=== PATIENT | male | born 2000 | race Caucasian/White ===

== ENCOUNTER 2019-04-23 05:46 | Inpatient (IN) | payer SELFPAY ==
[~2019-04-23] VITALS: Ht 172.7 cm; Wt 65.8 kg
--- NOTE | 2019-04-23 05:46 | NUR ---
PT BIB BY FRIEND [id number]. PT WAS UNRESPONSIVE TO VERBAL AND TACTILE STIMULATION. AGONAL RESPIRATIONS NOTED. PT WAS PALE AND DIAPHORETIC WITHOUT PURPOSEFUL MOVEMENT. GCS 3. RAPID RESPONSE IN ACTION. ERMD, EMT, RT, AND RNS AT BEDSIDE. GAVE NARCAN. PT RESPONSIVE, AGITATED, AND AGGRESSIVE. NO ALLERGIES. NO MED HX. SAFETY MEASURES IN PLACE. TAKING APPROPRIATE MEASURES PER ERMD PER ORDERS. WILL CONTINUE TO MONITOR.
--- NOTE | 2019-04-23 05:50 | NUR ---
FAMILY STATED PT WAS DRINKING ALCOHOL AND TAKING OXYCODONE. ERMD MADE AWARE.
[2019-04-23] MEDS ORDERED: NACL 0.9% 1,000 ML IV ONE ×2 (05:55→06:30)
[2019-04-23] MEDS ORDERED: NALOXONE 0.4 MG/ML VIAL IVP ONE ×2 (05:55)
--- NOTE | 2019-04-23 05:55 | NUR ---
BLOOD WAS DRAWN
--- NOTE | 2019-04-23 06:00 | NUR ---
PT IS ALERT AND TALKING. PT TOLERATED NARCAN. RESPONDS TO PAIN AND VERBAL STIMULI. VSS. CURRENTLY ON 4L NC. ABLE TO OBTAIN URINE VIA STRAIGHT CATH, SENT TO LAB. SAFETY MEASURES IN PLACE. WILL CONTINUE TO MONITOR.
[2019-04-23 06:27] LABS: APPEARANCE,URINE CLEAR (CLEAR); BASOPHILS % (AUTO) 0.3 % (0.0-2.0); BILIRUBIN,URINE NEGATIVE (NEGATIVE); BLOOD, URINE TRACE-I (NEGATIVE); COLOR,URINE YELLOW (YELLOW); EOSINOPHILS # (AUTO) 0.1 K/uL (0-0.4); EOSINOPHILS % (AUTO) 1.2 % (0.0-4.0); HEMATOCRIT 40.1 % (36-52); HEMOGLOBIN 13.2 g/dL (12.0-18.0); LEUKOCYTE ESTERASE ,URINE NEGATIVE (NEGATIVE); LYMPHOCYTES % (AUTO) 48.1 % (20.5-51.1); MEAN CORPUSCULAR HEMOGLOBIN 28 pg (27-31); MEAN CORPUSCULAR HGB CONC 33 g/dL (33-37); MEAN CORPUSCULAR VOLUME 84.6 fL (80-94); MONOCYTES # (AUTO) 0.9 K/uL (0.8-1.0); MONOCYTES % (AUTO) 8.3 % (1.7-9.3); NEUTROPHILS # (AUTO) 4.4 K/uL (1.8-7.7); NEUTROPHILS % (AUTO) 42.1 % (42.2-75.2); NITRITE, URINE NEGATIVE (NEGATIVE); PH,URINE 6.5 (5.0-9.0); PLATELET COUNT (AUTO) 218 K/uL (140-450); RED BLOOD CELL COUNT(AUTO) 4.74 MIL/uL (4.20-6.10); RED CELL DISTRIBUTION WIDTH 15.6 % (11.6-13.7); UGLUCOSE TRACE (NEGATIVE); WHITE BLOOD COUNT (AUTO) 10.4 K/uL (4.8-10.8)
--- NOTE | 2019-04-23 06:30 | NUR ---
PT RESTING IN BED, EASILY ARROUSABLE.
[2019-04-23 06:38] LABS: BARBITURATE, URINE NEG. ng/ml (NEG <=200); BENZODIAZEPINE, URINE POS. ng/mL (NEG <=200); CANNABINOID, URINE POS. ng/mL (NEG <=50); COCAINE, URINE POS. ng/mL (NEG <=300); OPIATE, URINE NEG. ng/mL (NEG <=2000); PHENCYCLIDINE SCREEN,URINE NEG. ng/mL (NEG <=25)
[2019-04-23 06:40] LABS: WBC,URINE 0-5 /HPF (0-5)
--- NOTE | 2019-04-23 06:40 | NUR ---
SEIZURE PRECAUTIONS IMPLEMENTED. BED RAILS UP X2, PADDED SIDE RAILS, AND BED IN LOWEST POSITION. WILL CONTINUE TO MONITOR.
--- NOTE | 2019-04-23 06:40 | NUR ---
Cezar schmidt in [facility], [place] - 04/23/19 at 0651 by TOMAS SEIZURE PRECAUTIONS IMPLEMENTED
[2019-04-23 06:42] LABS: ANION GAP 13.6 (8-16); POTASSIUM 3.6 mmol/L (3.5-5.1)
[2019-04-23 06:43] LABS: URINE AMORPHOUS URATE 2+ /HPF (None Seen)
[2019-04-23 06:50] LABS: ALBUMIN 3.8 g/dL (3.4-5.0); TOTAL BILIRUBIN 0.3 mg/dL (0.0-1.0)
[2019-04-23] MEDS ORDERED: ONDANSETRON 4 MG/2 ML VIAL IM/IVP PRN (06:55)
[2019-04-23] MEDS ORDERED: NACL 0.9% 1,000 ML IV SCH (06:55)
[2019-04-23] MEDS ORDERED: MORPHINE SULFATE 2 MG/ML SYR IVP PRN (06:55)
[2019-04-23] MEDS ORDERED: ACETAMINOPHEN 325 MG TAB PO PRN (06:55)
[2019-04-23] MEDS ORDERED: HYDROcodone/APAP 5/325 MG 1 TAB TAB PO PRN (06:55)
[2019-04-23] MEDS ORDERED: DOCUSATE SODIUM 100 MG GELCAP PO PRN (06:55)
[2019-04-23] MEDS ORDERED: NALOXONE PFS 2 MG/2 ML SYR ONE (07:19)
--- NOTE | 2019-04-23 07:26 | NUR ---
Patient will be admitted to care of DR. CONN. Admited to TELE. Will go to room 120A. Belongings list completed. Report to SANDRA WATERS.
[2019-04-23 07:30] VITALS: BP 97/69
--- NOTE | 2019-04-23 07:30 | NUR ---
PATIENT ARRIVED FROM ER VIA GURNEY. NO DISTRESS NOTED. DENIES ANY PAIN. AAOX3, CALM, COOPERATIVE, SKIN COLOR APPROPRIATE TO ETHNICITY, WARM TO TOUCH. SKIN INTACT. ABDOMEN SOFT, NON-DISTENDED. ABLE TO WALK TO BATHROOM AND BACK TO BED WITH STEADY GAIT AT THIS TIME. RESPIRATIONS EVEN, UNLABORED, ON ROOM AIR. ORIENTED PATIENT TO ROOM AND CALL LIGHT. IV SITES INTACT, PATENT, AND INFUSING IVF PER MD ORDERS. REVIEWED PLAN OF CARE WITH PATIENT. PATIENT VERBALIZED UNDERSTANDING. WILL CONTINUE TO MONITOR.
--- NOTE | 2019-04-23 07:30 | NUR ---
Pt report given AND TRANSFER OF CARE to SANDRA WATERS. VSS.
[2019-04-23 09:02] LABS: PROTHROMBIN TIME 9.9 secs (10.8-13.4)
[2019-04-23 09:21] LABS: MAGNESIUM 1.7 mg/dL (1.8-2.4); THYROID STIMULATING HORMONE 2.6 uIU/mL (0.34-3.74)
--- NOTE | 2019-04-23 12:10 | NUR ---
PATIENT WISHES TO LEAVE AMA, SAYS HE DOES NOT WANT TO STAY HERE. HE IS FEELING BETTER AND ABLE TO AMBULATE WITH STEADY GAIT. NOTIFIED DR. STEPHENSON REGARDING PATIENT WANTING TO LEAVE AMA. DR. STEPHENSON TALKED TO PATIENT AT BEDSIDE REGARDING RISKS OF LEAVING AMA. PATIENT WISHES TO CONTINUE TO LEAVE AMA. DESPITE RISKS EXPLAINED TO PATIENT BY MD. AMA PAPERS SIGNED. PATIENT AWAITING FOR GIRLFRIEND TO ARRIVE TO TAKE HIM HOME.
--- NOTE | 2019-04-23 12:40 | NUR ---
GIRLFRIEND AT BEDSIDE READY TO TAKE PATIENT HOME. IV SITES REMOVED WITH MINIMAL BLOOD AND LUMEN COMPLETELY INTACT. ID BANDS REMOVED. PATIENT LEFT AMA AT THIS TIME IN STABLE CONDITION.
== END 2019-04-23 12:40 | disposition left against medical advice (07) | DRG 917 ==
LOC: EDBD 05:46 → MED 05:46 → MTU 06:55
PROVIDERS: ADMIT General Practice; ATTEND General Practice
DX: T40.2X1A Poisoning by other opioids, accidental (unintentional), initial encounter (principal); G92 Toxic encephalopathy; Y92.89 Other specified places as the place of occurrence of the external cause; F19.90 Other psychoactive substance use, unspecified, uncomplicated; F32.9 Major depressive disorder, single episode, unspecified; F41.9 Anxiety disorder, unspecified; Z79.899 Other long term (current) drug therapy; F10.129 Alcohol abuse with intoxication, unspecified; Y90.9 Presence of alcohol in blood, level not specified; T40.7X1A Poisoning by cannabis (derivatives), accidental (unintentional), initial encounter; T40.5X1A Poisoning by cocaine, accidental (unintentional), initial encounter; T42.4X1A Poisoning by benzodiazepines, accidental (unintentional), initial encounter
CPT/HCPCS: 31500; 36415; 80053; 80305; 81001; 83036; 83690; 83735; 84100; 84443; 84484; 85025; 85610; 85730; 87081; 96361; 96374; 96376; 99291; G0482; J2310

== ENCOUNTER 2019-11-02 02:54 | Emergency (ER) | payer OTHER ==
[~2019-11-02] VITALS: Ht 172.7 cm; Wt 68.0 kg
[2019-11-02 03:01] VITALS: BP 121/78
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
--- NOTE | 2019-11-02 03:51 | NUR ---
X-Ray at bedside.
--- NOTE | 2019-11-02 05:13 | NUR ---
Dr. Hernández examining patient.
[2019-11-02] MEDS ORDERED: KETOROLAC 30 MG/ML VIAL IM ONE (05:20)
--- NOTE | 2019-11-02 05:36 | NUR ---
ORTHOPEDIC SHOE SIZE MENS SMALL PLACED ON PT R FOOT, FITTED TO PT SIZE
--- NOTE | 2019-11-02 05:37 | NUR ---
PT GIVEN INSTRUCTION ON PROPER USE OF CRUTCHES. CRUTCHES FITTED TO PT HEIGHT AND ARM LENGTH, PT GIVEN INSTRUCTION ON USING CRUTCHES, INCLUDING SITTING TO STANDING AND VICE VERSA, AND WALKING. PT DEMONSTRATED SAFE USE FOR APPROXIMATELY 40 FEET, PT STATED HE FELT COMFORTABLE WITH USE.
[2019-11-02 05:54] VITALS: BP 121/78
--- NOTE | 2019-11-02 05:54 | NUR ---
Patient discharged with v/s stable. Written and verbal after care instructions given and explained. Patient alert, oriented and verbalized understanding of instructions. Ambulatory with [facility] . All questions addressed prior to discharge. ID band removed. Patient advised to follow up with PMD. Rx of naprosyn given. Patient educated on indication of medication including possible reaction and side effects. Opportunity to ask questions provided and answered.
== END 2019-11-02 05:54 | disposition home or self-care (01) ==
LOC: MED 02:54
DX: S92.351A Displaced fracture of fifth metatarsal bone, right foot, initial encounter for closed fracture (principal); V19.9XXA Pedal cyclist (driver) (passenger) injured in unspecified traffic accident, initial encounter; Y93.89 Activity, other specified; Y92.89 Other specified places as the place of occurrence of the external cause; Y99.8 Other external cause status
CPT/HCPCS: 73630; 96372; 99283; J1885; Q0092